=== PATIENT | female | born 1970 | race Caucasian/White ===

== ENCOUNTER 2017-03-09 05:57 | Day surgery (SDC) | payer BC ==
--- NOTE | 2017-03-07 16:10 | HP ---
CC: Dr. Chapman * DATE OF ADMISSION: 03/09/2017. This patient is scheduled for Same Day Surgery admission by Dr. Rios. DATE OF PREOPERATIVE HISTORY AND PHYSICAL EXAMINATION: 03/07/2017. ATTENDING SURGEON: Dr. Robert Rios * (dictated by Keyla Plascencai NP). CHIEF COMPLAINT: Left neck mass. HISTORY OF PRESENT ILLNESS: The patient is a 46-year-old female recently evaluated by Dr. Rios for a left neck soft tissue mass consistent with a lipoma. The patient reports that she has had it for some time, but has noticed that it has enlarged. She has been doing physical therapy for a cervical ailment and finds that it is more noticeable. She denies any pain at the site. Dr. Rios examined the patient and there is a mobile 3 x 3 cm lesion superior to the left clavicle. It is nontender with no overlying skin changes. There were no additional palpable lesions in the neck. Dr. Rios reviewed an ultrasound of the left neck that was done through the [facility] system and report revealed a nodular density in the left clavicular area consistent with lipoma. Dr. Rios has recommended excision of the left neck mass as a same day surgery procedure as [facility]. He described the nature of the surgical procedure, the rationale for the procedure, the relevant risks and benefits, and today I reviewed the expected postoperative care and recovery. The patient has had a chance to ask questions and stated that she understands the information and is satisfied with the answers given to her questions. She will sign surgical consent on the day of surgery. PAST MEDICAL HISTORY: Significant for smoking, asthma and allergies. PAST SURGICAL HISTORY: Laparoscopic hysterectomy 2013. MEDICATIONS: 1. Fexofenadine 180 mg one tablet p.o. daily at 3:00 p.m. 2. ProAir inhaler two puffs every 4 hours prn. 3. Melatonin ER 5 mg daily at bedtime prn. ALLERGIES: No known drug allergies. FAMILY HISTORY: No known anesthesia complications. No known bleeding tendencies or clotting disorders. SOCIAL HISTORY: She is . 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 She smokes a pack of cigarettes per day since age 15 and currently does not have a plan to quit. She drinks alcohol socially. She denies the use of the substances. Her boyfriend will be with her on the day of surgery. REVIEW OF SYSTEMS: Constitutional: No fevers, chills, excessive fatigue or weight loss. Endocrine: No known diabetes. She reports previous thyroid nodules and has had ultrasound follow-up. Hematologic: No easy bruising or bleeding. No previous blood transfusions. Respiratory: She is a smoker. She has a morning cough. She denies any shortness of breath. She has a history of asthma and allergies. No recent upper respiratory infections. Cardiovascular: No anginal chest pain or palpitations. Gastrointestinal: No nausea, vomiting , diarrhea or constipation. No change in bowel habits. No heartburn. Genitourinary: No dysuria. Musculoskeletal: No complaints of back or joint pain. Neurologic: No headache, blurred vision, no areas of focal weakness. General: No previous anesthesia complications. No history of deep vein thrombosis or pulmonary embolism. PHYSICAL EXAMINATION GENERAL: The patient is a 46-year-old female, well-developed, well-nourished, mildly overweight, in no acute distress. SKIN: Warm, dry, intact. VITAL SIGNS: Height 67 inches, weight 170 pounds, body mass index 26.6. Blood pressure 140/90, pulse 72 and regular, respiratory rate 16, temperature 98.2 tympanic. HEENT: Benign. NECK: Supple. No cervical lymphadenopathy. Palpation reveals a soft and nontender mobile mass superior to the left clavicle that measures approximately 3 cm x 3 cm. There are no overlying skin changes. LUNGS: Breath sounds bilaterally clear and equal. HEART: Regular rate and rhythm. No murmurs or rubs appreciated. BACK: No CVA tenderness. ABDOMEN: Active bowel sounds, soft, nondistended, nontender throughout. No obvious masses or organomegaly. EXTREMITIES: Warm without edema or skin ulceration. PELVIC: Exam deferred. RECTAL: Exam deferred. NEUROLOGIC: Alert and oriented times three. Steady gait. IMPRESSION: Left neck soft tissue mass. PLAN: Same Day Surgery admission to Dr. Rios's service on Tuesday, 2017, for excision of left neck soft tissue mass described as consistent with lipoma. CARLOS PLASCENCIA, RACIEL [id number]/[facility] #: [id number] [facility] SOUTHAMPTON HOSPITALSuyapa
[~2017-03-09 05:57] MED LIST: Buffered Lidocaine 0.9% SYRIN* 5 ML/SYR SYRINGE INTRADERM ONE
[2017-03-09] MEDS ORDERED: Dexamethasone IV* 4 MG/ML 1 ML (4 MG) IV SLOW PU ONE (06:00)
[2017-03-09] MEDS ORDERED: Famotidine IV* 10 MG/ML 2 ML (20 mg) IV ONE (06:00)
[2017-03-09] MEDS ORDERED: ceFAZolin 2 GM PREMIX (*) 2 GM/50 ML BAG IVPB ONE (06:46)
[2017-03-09] MEDS ORDERED: Dexamethasone IV* 4 MG/ML 1 ML (4 MG) ONE (06:46)
[2017-03-09] MEDS ORDERED: Famotidine IV* 10 MG/ML 2 ML (20 mg) ONE (06:46)
[2017-03-09] MEDS ORDERED: Bupivacaine 0.5% SDV PF* 10-30ML VIAL ONE (07:08)
[2017-03-09] MEDS ORDERED: Lidocaine 1% MPF wEPI 200,000* 30 ML SDV ONE (07:08)
[2017-03-09] MEDS ORDERED: fentaNYL* 50 MCG/ML 2 ML VIAL (100 MCG VIAL) ONE ×2 (07:23→08:32)
[2017-03-09] MEDS ORDERED: Midazolam* 1 MG/ML 2 ML VIAL (2 MG) ONE (07:23)
[2017-03-09] MEDS ORDERED: Naloxone* 0.4 MG/ML 1 ML VIAL IV PRN (07:26)
[2017-03-09] MEDS ORDERED: HYDROcodone/ACETAMIN 5-325 MG* 1 TAB PO PRN (07:26)
[2017-03-09] MEDS ORDERED: PROCHLORPERAZINE INJ 5 MG/ML 2 ML VIAL IV PRN (07:26)
[2017-03-09] MEDS ORDERED: fentaNYL* 50 MCG/ML 2 ML VIAL (100 MCG VIAL) IV PRN (07:26)
[2017-03-09] MEDS ORDERED: Ketorolac INJ* 30 MG/ML 1 ML VIAL IV PRN (07:26)
[2017-03-09] MEDS ORDERED: oxyCODONE/Acetamin 5/325 MG* TAB PO PRN (07:26)
[2017-03-09] MEDS ORDERED: Propofol* 10 MG/ML 20 ML BTL IV PUSH ONE (07:53)
[2017-03-09] MEDS ORDERED: Lidocaine 2% PF * 5 ML VIAL ONE (07:53)
[2017-03-09] MEDS ORDERED: Bupivacaine 0.25% SDV* 30 ML ONE (08:10)
[2017-03-09] MEDS ORDERED: Ondansetron INJ* 2 MG/ML VIAL ONE (08:18)
[2017-03-09 09:45] VITALS: BP 135/82
--- NOTE | 2017-03-19 04:15 | OP ---
CC: [facility]; Dr. Chapman OPERATIVE REPORT: DATE OF OPERATION: 03/09/17 DATE OF : 68 SURGEON: Robert Rios MD NURSES AIDE: EMMA Scott ANESTHESIOLOGIST: Dr. Sparks. ANESTHESIA: General anesthesia with LMA. PRE-OP DIAGNOSIS: Soft tissue lesion in the left neck. POST-OP DIAGNOSIS: Soft tissue lesion in the left neck. OPERATIVE PROCEDURE: Excision of left neck lipoma. ESTIMATED BLOOD LOSS: Minimal. SPECIMEN: Neck mass consistent with lipoma. IV FLUIDS: 1000 cc. DRAINS: None. DESCRIPTION OF PROCEDURE: The patient was identified in the preoperative area. The lesion again asse ssed. She was marked, consent signed, brought to the operating room. General anesthesia was deliver ed. The right neck and upper chest were prepped and draped in a standard surgical fashion. A time-o ut was performed. A curvilinear incision was made overlying the site at the mid lateral neck closer to the posterior tr iangle. This was deepened down through the platysma and flaps were made both posterior and anteriorl y. Dissection carried out to get down to the palpable lesion, which appeared just as fatty tissue wi thout any discrete capsule, this was removed in 3 parts, passed off as specimen. We irrigated the wo und and reapproximated the platysma with 2-0 Vicryl sutures and the skin level with 3-0 Vicryl suture s subcuticularly and a 4-0 Monocryl subcutaneous suture in a running fashion. Sterile dressing was a pplied. The patient tolerated the procedure well. [id number]/[facility] #: [id number]
== END 2017-03-09 10:14 | disposition home or self-care (01) ==
LOC: OR 05:57
PROVIDERS: ATTEND Surgery
DX: D17.9 Benign lipomatous neoplasm, unspecified (principal); F17.210 Nicotine dependence, cigarettes, uncomplicated; J45.909 Unspecified asthma, uncomplicated
CPT/HCPCS: 88304; J0690; J1100; J2001; J2250; J2405; J2704; J3010

== ENCOUNTER 2018-01-21 14:16 | Emergency (ER) | payer BC ==
[2018-01-21 14:27] VITALS: BP 151/79
--- NOTE | 2018-01-21 14:49 | ED ---
HPI Cardiac - HPI Summary HPI Summary: Patient presents with upper respiratory symptoms and cough 4 days. She reports she always has some level of nasal congestion however this seems to be worse as of late. Her cough is dry however is causing her throat and chest to burn. Admits she had chills last night - no quinten fever. Also has a headache. She took ibuprofen and [id number] cold and flu medicine which helped the symptoms. She also has asthma and uses albuterol daily. Since sick, she's been using it 3 times a day. Reports this does provide some relief. Cough repeatedly last night to the point of gagging and vomiting but otherwise has had no nausea, vomiting or diarrhea, and no joint pain, skin rash, neck stiffness, difficulty breathing or chest tightness. She received her influenza vaccine about a month ago. Sick contacts include her boyfriend. She smokes about a pack a day however this is been less than sick. She also admits to having a cat to which she is allergic. Has never had a nebulizer tx but has had inhaled steroids when she was first diagnosed w/ asthma. - History of Current Complaint Chief Complaint: UCRespiratory Stated Complaint: COUGH Time Seen by Provider: 01/21/18 14:23 Hx Obtained From: Patient Pain Intensity: 4 - Allergy/Home Medications Allergies/Adverse Reactions: Allergies Allergy/AdvReac Type Severity Reaction Status Date / Time Dogs and Cats Allergy Sneezing Uncoded 01/21/18 14:27 Seasonal Allergies Allergy Eyes Uncoded 01/21/18 14:27 Itchy/Swollen/Red/Watery Home Medications: Home Medications Citalopram TAB* [CeleXA TAB*] 20 mg PO DAILY 01/21/18 [History Confirmed ] Fexofenadine HCl [Allergy Relief] 60 mg PO DAILY 01/21/18 [History Confirmed ] PMH/Surg Hx/FS Hx/Imm Hx Previously Healthy: Yes Endocrine/Hematology History: Denies: Hx Diabetes, Hx Thyroid Disease, Hx Anemia Cardiovascular History: Denies: Hx Hypertension, Other Cardiovascular Problems/Disorders Respiratory History: Reports: Hx Asthma, Other Respiratory Problems/Disorders Denies: Hx Chronic Bronchitis, Hx Chronic Obstructive Pulmonary Disease (COPD ), Hx Pulmonary Edema, Hx Pulmonary Embolism GI History: Denies: Hx Gastroesophageal Reflux Disease, Hx Jaundice, Hx Ulcer, Other GI Disorders History: Denies: Other Problems/Disorders Musculoskeletal History: Reports: Other Musculoskeletal History - reversal of cervical lordosis, finished physical therapy Sensory History: Reports: Hx Contacts or Glasses - reading glasses Denies: Hx Hearing Aid Opthamlomology History: Reports: Hx Contacts or Glasses - reading glasses Neurological History: Denies: Other Neuro Impairments/Disorders - Surgical History Surgery Procedure, Year, and Place: Hysterectomy Hx Anesthesia Reactions: No - Immunization History Immunizations Up to Date: Yes Infectious Disease History: No Infectious Disease History: Denies: Hx Hepatitis, Hx Human Immunodeficiency Virus (HIV), Traveled Outside the [place] in Last 30 Days - Family History Known Family History: Positive: None - No family hx of cardiac, renal disease. - Social History Lives: With Family Alcohol Use: Weekly Alcohol Amount: 3-4 glasses of wine a night Hx Substance Use: No Substance Use Type: Reports: None Hx Tobacco Use: Yes Smoking Status (MU): Current Every Day Smoker Type: Cigarettes Amount Used/How Often: 1 ppd Have You Smoked in the Last Year: Yes Review of Systems Positive: Chills Eyes: Negative Negative: Drainage, Erythema Positive: Sore Throat, Ear Ache - congestion, Nasal Discharge - congestion Cardiovascular: Negative Positive: Cough Gastrointestinal: Negative Positive: no symptoms reported Musculoskeletal: Negative Skin: Negative Positive: Headache. Negative: Weakness, Paresthesia, Numbness, Syncope, Slurred Speech Psychological: Normal All Other Systems Reviewed And Are Negative: Yes Physical Exam Triage Information Reviewed: Yes Vital Signs On Initial Exam: Initial Vitals Temp Pulse Resp BP Pulse Ox 99.0 F 116 16 151/79 95 01/21/18 14:22 01/21/18 14:22 01/21/18 14:22 01/21/18 14:22 01/21/18 14:22 Vital Signs Reviewed: Yes Appearance: Positive: No Pain Distress, Well-Nourished, Ill-Appearing - mildly fatigued but alert, good energy Skin: Positive: Warm, Skin Color Reflects Adequate Perfusion, Dry - no rash Head/Face: Positive: Normal Head/Face Inspection Eyes: Positive: Normal, EOMI, Conjunctiva Clear. Negative: Conjunctiva Inflammed, Discharge ENT: Positive: Hearing grossly normal, Pharyngeal erythema - cobblestoning, Nasal congestion - Rt > Lt, TMs normal, Tonsillar exudate - Rt (scant), Uvula midline. Negative: Nasal drainage, Tonsillar swelling, Trismus, Muffled voice, Hoarse voice, Sinus tenderness Neck: Positive: Supple, No Lymphadenopathy, Tenderness @ Respiratory/Lung Sounds: Positive: Clear to Auscultation, Breath Sounds Present. Negative: Decreased Breath Sounds, Rales, Rhonchi, Stridor, Tracheal Deviation, Wheezes, Unable to speak in full sentences, Fatigue Cardiovascular: Positive: Normal, RRR, S1, S2. Negative: Murmur, Rub, Leg Edema Left, Leg Edema Right Abdomen Description: Positive: Nontender, No Organomegaly, Soft Bowel Sounds: Positive: Present Musculoskeletal: Positive: Normal, Strength/ROM Intact Neurological: Positive: Normal, Sensory/Motor Intact, Alert, Oriented to Person Place, Time, CN Intact II-III Psychiatric: Positive: Normal Diagnostics - Vital Signs Vital Signs Temp Pulse Resp BP Pulse Ox 01/21/18 14:22 99.0 F 116 16 151/79 95 - Laboratory Lab Statement: Any lab studies that have been ordered have been reviewed, and results considered in the medical decision making process. Re-Evaluation - Re-Evaluation First Eval Change: Improved - breathing easier s/p duoneb Disposition - Course Course Of Treatment: CXR: Rt upper lobe opacity along lower border - new from previous CXR. Radiology agrees consolidation here should be considered. Correlates w/ pt's sx. Will rx levaquin as she has h/o smoking and asthma. Increase albuterol q 4-6 hrs. Danger s/sx reviewed. Pt agrees w/ plan. NOTE: neg flu - Diagnoses Provider Diagnoses: Pneumonia of right lung due to infectious organism Discharge - Sign-Out/Discharge Documenting (check all that apply): Patient Departure All imaging exams completed and their final reports reviewed: Yes - Discharge Plan Condition: Stable Disposition: HOME Prescriptions: Levofloxacin TAB* [Levaquin TAB*] 750 mg PO DAILY #7 tab Patient Education Materials: Bacterial Pneumonia (ED) Forms: *Work Release Referrals: Sherrill Chapman MD [Primary Care Provider] - Additional Instructions: You may use your albuterol inhaler every 4-6 hours as needed for cough, wheezing , chest tightness. Compete antibiotics as directed. Follow-up with PCP this week - call Tuesday to schedule appointment. *If worse, go to ED - ie. difficulty breathing, shortness of breath, bloody cough, intractable fever despite acetaminophen alternating with ibuprofen, etc Try any or all of the following to support your healing process: Nasal wash (netti pot or saline spray) & salt water throat gargles 2 x day to reduce nasal congestion, post nasal drip which can trigger cough, sore throat, ear congestion Drink you body weight in ounces of water every day Sleep 8+ hours per night Avoid Dairy and sugar Hot herbal/decaf tea with lemon & honey Chicken broth (preferably organic, free range chicken) Humidifier in house, but especially near bed at night Keep home temperature at 68F or less to reduce dryness Use cough drops/throat lozenges Try a facial steam with or without eucalyptus essential oil or Mj's Vapor rub for congestion - if scent exacerbates cough, stop using Avoid smoke, candles, perfumes, colognes, scented soaps/detergents , air fresheners and cleaning chemicals as these can cause airway irritation and trigger coughing Start Vitamin D3 5000iu and Vitamin C 1000mg every day x winter months Start probiotics in between antibiotics (ie. Yogurt and/or capsules of L. acidophilus, L. bifidus, L. casei, etc) - Billing Disposition and Condition Condition: STABLE Disposition: Home
[2018-01-21] MEDS ORDERED: Albuterol/Ipratropium NEB.SOL* Albuterol 2.5 MG/Ipratropium 0.5 MG 3 ML INH ONE (14:54)
== END 2018-01-21 15:59 | disposition home or self-care (01) ==
LOC: UCEAST 14:16
DX: J18.9 Pneumonia, unspecified organism (principal); F17.210 Nicotine dependence, cigarettes, uncomplicated
CPT/HCPCS: 71046; 99212; A9270-GY; G0463

== ENCOUNTER 2019-03-15 16:14 | Emergency (ER) | payer SELFPAY ==
--- NOTE | 2019-03-15 16:51 | ED ---
Adult Trauma - HPI Summary HPI Summary: Patient complains of abrasions to face and right elbow pain status post mechanical fall while being chased by a dog. Denies LOC, N/V, unilateral deficit, altered mental status, amnesia. Denies any other pain, injury or symptoms. Medical history is asthma. - History of Current Complaint Chief Complaint: EDExtremityUpper Stated Complaint: FALL-RIGHT ELBOW INJURY PER EMS Time Seen by Provider: 03/15/19 16:35 Hx Obtained From: Patient Mechanism of Injury: Fall Ambulatory at the Scene: Yes Loss of Consciousness: no loss of consciousness Onset/Duration: Started Hours Ago Onset of Pain: Immediate Onset Severity: Severe Current Severity: Severe Pain Intensity: 9 Pain Scale Used: 0-10 Numeric Location: Head, Extremities Character: Aching, Stabbing Aggravating Factor(s): Movement Alleviating Factor(s): Nothing Associated Signs & Symptoms: Positive: Negative - Allergy/Home Medications Allergies/Adverse Reactions: Allergies Allergy/AdvReac Type Severity Reaction Status Date / Time Dogs and Cats Allergy Sneezing Uncoded 01/21/18 14:27 Seasonal Allergies Allergy Eyes Uncoded 01/21/18 14:27 Itchy/Swollen/Red/Watery PMH/Surg Hx/FS Hx/Imm Hx Endocrine/Hematology History: Denies: Hx Diabetes, Hx Thyroid Disease, Hx Anemia Cardiovascular History: Denies: Hx Hypertension, Other Cardiovascular Problems/Disorders Respiratory History: Reports: Hx Asthma, Other Respiratory Problems/Disorders Denies: Hx Chronic Bronchitis, Hx Chronic Obstructive Pulmonary Disease (COPD ), Hx Pulmonary Edema, Hx Pulmonary Embolism GI History: Denies: Hx Gastroesophageal Reflux Disease, Hx Jaundice, Hx Ulcer, Other GI Disorders History: Denies: Other Problems/Disorders Musculoskeletal History: Reports: Other Musculoskeletal History - reversal of cervical lordosis, finished physical therapy Sensory History: Reports: Hx Contacts or Glasses - reading glasses Denies: Hx Hearing Aid Opthamlomology History: Reports: Hx Contacts or Glasses - reading glasses EENT History: Denies: Hx Deafness Neurological History: Denies: Hx Dementia, Other Neuro Impairments/Disorders - Surgical History Surgery Procedure, Year, and Place: Hysterectomy Hx Anesthesia Reactions: No Infectious Disease History: No Infectious Disease History: Denies: Hx Hepatitis, Hx Human Immunodeficiency Virus (HIV), Traveled Outside the [place] in Last 30 Days - Family History Known Family History: Positive: None - No family hx of cardiac, renal disease. - Social History Alcohol Use: Daily Alcohol Amount: 3-4 glasses of wine a night Hx Substance Use: No Substance Use Type: Reports: None Hx Tobacco Use: Yes Smoking Status (MU): Light Every Day Tobacco Smoker Type: Cigarettes Amount Used/How Often: 1 ppd Have You Smoked in the Last Year: Yes Review of Systems Constitutional: Negative Eyes: Negative ENT: Negative Cardiovascular: Negative Respiratory: Negative Gastrointestinal: Negative Genitourinary: Negative Musculoskeletal: Other Positive: Other Neurological: Negative Psychological: Normal All Other Systems Reviewed And Are Negative: Yes Physical Exam - Summary Physical Exam Summary: Neuro exam normal. Minor abrasions on chin and nose. No other evidence of trauma to mouth, face or head. Full range of motion of jaw and neck. Patient moves right lateral lower extremities and left upper extremities freely without any indication of pain. No pain with palpation of neck, back, chest, abdomen. Patient will not move right upper extremity. Obvious deformity just proximal to right elbow. PMS intact distally. Wrist and thumb extension intact sensation intact on all fingers. Patient able to actively move all fingers. Hand warm, Pulses intact. Triage Information Reviewed: Yes Vital Signs On Initial Exam: Initial Vitals Temp Pulse Resp BP Pulse Ox 96.4 F 70 18 121/69 91 03/15/19 16:26 03/15/19 16:26 03/15/19 16:26 03/15/19 16:26 03/15/19 16:26 Vital Signs Reviewed: Yes Appearance: Positive: Well-Appearing Skin: Positive: Warm Head/Face: Positive: Normal Head/Face Inspection Eyes: Positive: Normal Dental: Negative: Dental Fracture @, Bleeding Neck: Positive: Supple Respiratory/Lung Sounds: Positive: Clear to Auscultation Cardiovascular: Positive: Normal Abdomen Description: Positive: Nontender Musculoskeletal: Positive: Normal Neurological: Positive: Normal Psychiatric: Positive: Normal AVPU Assessment: Alert - Antony Coma Scale Best Eye Response: 4 - Spontaneous Best Motor Response: 6 - Obeys Commands Best Verbal Response: 5 - Oriented Coma Scale Total: 15 Procedures - Sedation Patient Received Moderate/Deep Sedation with Procedure: No Diagnostics - Vital Signs Vital Signs Temp Pulse Resp BP Pulse Ox 03/15/19 16:26 96.4 F 70 18 121/69 91 - Laboratory Lab Statement: Any lab studies that have been ordered have been reviewed, and results considered in the medical decision making process. Adult Trauma Course/Dx - Course Course Of Treatment: Patient complains of abrasions to face and right elbow pain status post mechanical fall while being chased by a dog. Denies LOC, N/V, unilateral deficit, altered mental status, amnesia. Denies any other pain, injury or symptoms. Medical history is asthma. Vital signs within normal limits. X-ray positive for distal humerus fracture. Fracture reduced and splinted by orthopedics Dr. Pires. Follow-up appointment on Tuesday in clinic with Dr. Pires. Discharged with Rx for Percocet per Dr. Pires. - Diagnoses Provider Diagnoses: Fall, Humeral distal fracture Discharge ED - Sign-Out/Discharge Documenting (check all that apply): Patient Departure - Discharge Plan Condition: Stable Disposition: HOME Prescriptions: oxyCODONE/Acetamin 5/325 MG* [Percocet 5/325 TAB*] 1 tab PO Q4H PRN 4 Days #24 tab MDD 6 tabs PRN Reason: Pain Patient Education Materials: Arm Fracture in Adults (ED) Referrals: Sherrill Chapman MD [Primary Care Provider] - Brien Pizarro MD [Medical Doctor] - Additional Instructions: Take Percocet as directed if needed for pain. Call clinic of orthopedics Dr. Pires tomorrow to arrange appointment for follow-up on Tuesday. - Billing Disposition and Condition Condition: STABLE Disposition: Home
[2019-03-15] MEDS ORDERED: HYDROmorphone INJ* 0.5 MG/0.5 ML SYRINGE IV ONE ×2 (16:54→18:44)
--- NOTE | 2019-03-15 21:28 | CONS ---
CONSULTATION NOTE: DATE OF CONSULT: 03/15/19 - EMERGENCY DEPT REASON FOR CONSULTATION: Right humerus fracture. 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 The patient was at work. She was delivering the mail to someone's house. There was a dog who was outside. The dog lunged towards her. She ran away from the dog. She tripped and fell hard on her right upper extremity and then her face. The patient had significant pain, swelling, deformity in the right upper arm and went to the [facility] [place]. The patient denies any numbness, tingling, or weakness of the right hand. PAST MEDICAL HISTORY: Asthma, mild; seasonal allergies; depression or dysthymia. PAST SURGICAL HISTORY: Hysterectomy. MEDICATIONS: 1. Celexa. 2. Albuterol as needed. 3. Allergy pill, unknown type, assumed to be antihistamine. ALLERGIES: No known drug allergies. FAMILY HISTORY: No family history of problems with anesthesia or blood clots. SOCIAL HISTORY: The patient is right hand dominant. She lives alone, but she has a boyfriend that she spends a lot of time with. REVIEW OF SYSTEMS: Full 14-point review of systems was negative with the exception of some pain and swelling in the right upper arm and elbow along with the face. PHYSICAL EXAM: No acute distress, alert and oriented, appropriate mood and affect, appropriate dress and hygiene. The patient is sitting in a stretcher in the emergency department. Right upper extremity exam reveals pain, swelling, and deformity about the right upper arm. No open skin. Neurovascularly intact distally. Radial artery pulse brisk. Sensation fully intact in all peripheral nerve distributions. Motor intact with special attention paid to radial nerve distribution motor, which was intact. Hand warm and well perfused. Sensation intact. DIAGNOSTIC STUDIES/LAB DATA: Imaging: X-rays of the right upper arm as well as elbow were obtained in the emergency department and reviewed by me. These showed a comminuted displaced fracture of the distal humerus shaft. There is significant varus angulation along with flexion at the fracture site and shortening. ASSESSMENT: Right humerus shaft fracture, displaced, comminuted. PLAN: 1. I discussed with the patient and her boyfriend the humerus anatomy and the patient's fracture. 2. I discussed nonoperative and operative treatment for these injuries. 3. We next placed a coaptation splint followed by a long-arm posterior splint. We used a 1-step material for this. After the splints had been placed but before they set, I tried to perform a reduction maneuver, closed, with longitudinal traction, valgus, and extension at the fracture site. This hurt and there appeared to be some movement. I placed a collar, cuff, swathe with a band of material around her neck reaching to her wrist to allow gravity to reduce the right humeral shaft. 4. I performed neurovascular exam after the closed reduction maneuver and splinting. The patient was again neurovascularly intact. 5. X-ray: Radiographs were obtained after the reduction maneuver. Only 1 image has been obtained so far, but it shows significant improvement of reduction, specifically much less flexion at the fracture site. 6. The patient will be discharged home with Percocet or another narcotic as needed for pain control. 7. The patient will follow up in clinic with me on the afternoon of Tuesday, . We will get x-rays in clinic that day. We will discuss nonoperative and operative management and we will decide on the course of treatment. If the patient decides on surgery or if surgery is required based on the amount of displacement at that time, we will hopefully find a spot for the patient in the operating room on that week of 03/19/19 for an open reduction internal fixation with a posterior locking plate. [id number]/[facility] #: [id number] MTDD
[2019-03-16] MEDS ORDERED: Ondansetron INJ* 2 MG/ML VIAL IV ONE (00:10)
[2019-03-16 01:46] VITALS: BP 132/79
== END 2019-03-16 01:50 | disposition home or self-care (01) ==
LOC: ED 16:14
DX: S42.401A Unspecified fracture of lower end of right humerus, initial encounter for closed fracture (principal); J45.909 Unspecified asthma, uncomplicated; W19.XXXA Unspecified fall, initial encounter; Y92.9 Unspecified place or not applicable; F17.210 Nicotine dependence, cigarettes, uncomplicated
CPT/HCPCS: 96374; 96375; 96376; 99285; J1170; J2405

== ENCOUNTER → 2019-03-23 07:18 | Day surgery (SDC) | payer OTHER ==
[~2019-03-23 07:18] MED LIST changes: +Acetaminophen IV 1GM/100ML * 100 ML ONE; -Buffered Lidocaine 0.9% SYRIN* 5 ML/SYR SYRINGE INTRADERM ONE; +Buffered Lidocaine 1% SYRIN* 1 ML/SYRINGE INTRADERM ONE; +Bupivacaine 0.25% EPI 200,000* 30 ML SDV ONE; +Dexamethasone IV* 4 MG/ML 1 ML (4 MG) ONE; +Glycopyrrolate IV* 0.2 MG/ML 1 ML VIAL ONE; +Lactated Ringers 1000 ML Bag* 1,000 ML IV SCH; +Lidocaine 2% PF * 5 ML VIAL ONE; +Metoclopramide IV* 5 MG/ML 2 ML VIAL ONE; +Midazolam* 1 MG/ML 2 ML VIAL (2 MG) ONE; +Ondansetron INJ* 2 MG/ML VIAL ONE; +Propofol* 10 MG/ML 20 ML BTL ONE; +Rocuronium* 10 MG/ML VIAL ONE; +Succinylcholine* 20 MG/ML 10 ML VIAL ONE; +Sugammadex * 200 MG/2 ML VIAL IV PUSH ONE; +fentaNYL* 50 MCG/ML 2 ML VIAL (100 MCG VIAL) ONE; +oxyCODONE/Acetamin 5/325 MG* TAB ONE
[2019-03-23 17:42] VITALS: BP 123/63
--- NOTE | 2019-03-25 00:27 | OP ---
OPERATIVE REPORT: DATE OF OPERATION: 03/23/19 DATE OF : 68 SURGEON: Brien Pizarro MD. TOOTH CUTTER PINION: EMMA Marks A physician staff assistant was required for the length of the procedure, for assistance with patient positioning, retraction, instrumentation and closure. ANESTHESIOLOGIST: Dr. Dominic Israel ANESTHESIA: General anesthesia, local anesthesia using 30 cc of Marcaine 0.25% with epinephrine. PRE-OP DIAGNOSIS: Right distal humerus shaft fracture, displaced, comminuted. POST-OP DIAGNOSIS: Right distal humerus shaft fracture, displaced, comminuted. OPERATIVE PROCEDURE: Open reduction and internal fixation, right distal humerus shaft fracture. ANTIBIOTICS: Ancef 2 g IV. IV FLUIDS: See Anesthesia note. PATIENT POSITIONING: Prone. QVKG-FQ-YLLS TIME: 180 minutes. TOURNIQUET TIME: 22 minutes at 250 mmHg right upper arm. RADIATION EXPOSURE: C-arm utilized. Exposure time 25.5 seconds. SPECIMEN: None. IMPLANTS: Synthes 3.5 mm LCP extraarticular distal humerus plate. 10 Combi hole plate that also has 5 distal locking holes. Placed posterior more proximally and posterolaterally more distally. Plate was filled with 3.5 mm non -locking and locking screws. One 3.5 mm cortical screw was placed using lag technique from posteromedial to anterior towards the distal end of the main long oblique fracture line. Two Fiberwire #2 suture were placed in cerclage fashion around the humerus at the level of a small piece of comminuted bone to hold it in place against the two larger fragments of bone. APPROACH: Paratricipal approach to the humerus shaft. COMPLICATIONS: None. ESTIMATED BLOOD LOSS: Less than 200 cc. INDICATIONS FOR PROCEDURE: The patient is a 48-year-old woman who injured herself at work on 03/15/19. 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 I saw the patient in the hospital as a consult to the emergency room. I noted the significant displacement of the fracture site. I attempted to improve the reduction with some manipulation in the emergency room and then I placed a coaptation splint followed by a long-arm posterior splint. I placed a cuff and collar for the arm to hand from the neck allowing gravity to attempt to improve the reduction with some time. I then saw the patient for followup in clinic on 03/20/19. Over the preceding 5 days, the reduction had not significantly improved. There was still much deformity at the fracture site including at least 21 degrees of varus, at least 16 degrees of posterior angulation, and rotational deformity. I discussed treatment options with the patient and her family, including nonoperative and operative. Discussed some classic indications for humeral shaft surgery. I discussed risks and potential complications of surgery including nerve injury, specifically the radial nerve, that is known to traverse the posterior aspect of the arm directly adjacent to the distal humerus shaft where this fracture is located. I also discussed ulnar nerve being nearby. Given the patient's history of smoking, 30 pack years, I discussed with her risk of nonunion and failure of hardware. I also discussed possibility of elbow stiffness. I discussed prone position with an armboard. The patient opted to move forward with surgery. DESCRIPTION OF PROCEDURE: In preoperative holding, the patient signed written consent. Operative extremity was marked in preoperative holding. I discussed that the patient's bone and soft tissues will heal better if she cuts down on or eliminates her cigarette smoking. The patient was taken back to the operating room. On the stretcher, the patient was sedated and intubated. The patient was converted to a prone position on the operating room table. Gel pads were used, 2 of them running longitudinally under the patient's chest. Both of the patient's axilla were noted to be free and comfortable, not under any significant strain. The entire body's undersurface was well padded including the knees. I had brought in an armboard and placed that under the patient's shoulder area that would be utilized to hold the arm as it was radiolucent. This would allow the upper arm to be very stable and the elbow to flex approximately 90 degrees. The arm would not need to be moved or jostled for radiographs. This was all designed for safety while dissecting around nerves. The C-arm was positioned, so would come in parallel to the body, from the side of the table with the head of the patient. I brought the C-arm in and confirmed that appropriate x-rays, AP and lateral could be obtained. I was happy with the patient positioning, and the setup to comfortably and safely obtain radiographs. The right upper extremity was prepped and draped. Formal surgical time-out performed. A sterile tourniquet was applied about the right upper arm, although it was unsure if we will be able to leave it in place because I anticipated a very lengthy surgical incision. I made a skin incision, longitudinal, direct posterior. I curved this just lateral to the point of the olecranon and I extended the incision to just distal to the olecranon tip. I started proximally somewhere between 40% and 50 % down the upper arm from proximal to distal anticipating needing to extend it further proximal later in the case. I dissected down through subcutaneous tissue. I evacuated some blood present given superficial to the muscle and fascial layer. I incised some fascia longitudinally, direct posteriorly. It did not seem like that there was a discrete thick fascial layer that could be repairable. I exposed nicely the triceps muscle. I dissected along the medial aspect of the triceps muscle. I encountered the ulnar nerve. I released it distal to the proximal entrance point of the cubital tunnel. I started releasing it proximally. I felt a bone deep to the triceps muscle. I debrided bone with a sponge, removing some blood and muscle exposing nicely the bone. I encountered the fracture site. I next moved to little lateral. I dissected along the lateral aspect of the triceps muscle. Hugging the lateral aspect very directly to avoid injury to the radial nerve, I dissected down to bone, likewise could feel bone from this side, as per a standard para-tricipital triceps sparing approach. I palpated and visualized the most inferior aspect of the fracture and it was clear what would have to dissect much more proximally. This was very early in the procedure. Dissection to bone was very quick, although the remainder of the dissection was done very slowly and carefully given the close proximity of nerves. Tourniquet was removed. Skin incision was extended proximally along with fascial incision and exposure of the triceps. I dissected around the ulnar nerve much more proximally as well as along the medial aspect of the triceps muscle. I never needed to place the ulnar nerve in a vessel loop. It was sufficiently out of the way that I was not concerned with an inadvertent injury. I dissected up more proximally along the lateral aspect of the triceps. I noted that the radial nerve was directly adjacent to fracture as was expected. It was very closed essentially immediately adjacent to the fracture site. In fact, the small piece of comminution was directly adherent to soft tissue encasing the radial nerve. This was slowly and carefully removed from that tissue. That small fragment of bone went to the back table and kept moist. I slowly and carefully dissected along the medial and lateral aspect of the radial nerve. It was not a clot within the fracture site, although its course was directly adjacent to the fracture site, very dangerous indeed. I continued my exposure proximally to get excellent exposure of the radial nerve , as it traversed from medial proximal to lateral distal. I dissected down until the radial nerve extruded through the lateral intramuscular septum. Comfortable with my ulnar nerve being out of the way and my radial nerve now loose and also with a vessel loop around it. I proceeded to debride the fracture site. I used rongeurs, curettes, irrigation to debride clot out the fracture. I used my fingers and clamps to reduce the fracture anatomically. Locked in nicely. I added the additional small piece of bone that had been on the back table to the fracture site. I placed 1 lag screw towards the distal end of the fracture using lag technique. This was placed along the medial aspect of the bone, as I knew it would not interfere with the future placement. This helped the fracture nicely in place more distally. At the location of that small bone fragment, I placed 2 cerclage stitches using FiberWire #2 suture. These nicely held in place that small piece of comminution. When the final bone clamp was removed, this single lag screw held nicely the reduction. C-arm was used to obtain AP and lateral radiographs, which showed anatomic or near anatomic position. I could view clearly the radial and ulnar nerves along the length of the incision and the length of the fracture and so I knew there was certainly no interposed nerve injury was present. I should state that I had come into this case with a wide variety of plate options, 3.5 mm and 4.5mm, available to me. I thought that this was important as this fracture was interesting because it was a particularly long oblique fracture in shape. I knew therefore that it would require a significant length of plate to get 3 or better 4 screws proximal to the proximal most aspect of the fracture and distal to the distal most aspect of the fracture. I ended up choosing the Synthes distal humerus locking plate, 3.5 mm because it could be extended more distally than an uncontoured straight plate. I was able to fit it to bone nicely. I picked a height based on appearance on radiographs and contour to bone. I did not manipulate the shape of the plate. I had to slide the plate deep to the radial nerve. In case revision surgery is ever required, I noted that the radial nerve crossed the plate at the level of the Combi holes number (from distal to proximal) 6, 7, 8, and 9. Plate was next filled with screws. I started with nonlocking screws 1 proximal and 1 distal to the fracture. Radiographs showed excellent plate position and excellent reduction. I placed some additional nonlocking screws at the level of fracture, so they would both go through the plate and lag the 2 fracture fragments, the major fracture fragments together. I placed a number of locking screws then proximally and distally. Final radiographs were obtained. At least 4 screws proximal to the proximal most extent of the fracture and distal to the distal most extent of the fracture. Radial nerve was noted to be directly adjacent to that plate in holes 6 through 9, as measured from distal to proximal. It was clearly not embedded in the fracture site and clearly was on top and not beneath the plate. Irrigation. I closed some fascial tissue over the distal most aspect of the plate above the posterior elbow, so as to make that plate less prominent and so the patient would not be sensitive there. More proximally, there was not a nice fascial layer to close, but there was a strong layer of deeper fat, perhaps with a little bit of fascia attached to it that I placed multiple figure -of-eight stitches using Vicryl 0 suture. I then closed the subcutaneous layer along the length of the incision with buried simple stitches using Vicryl 2-0 suture. Closure of the kin with jose antonio. No drain was placed. The patient had oozed some blood throughout the length of the procedure, but no heavy bleeding in any specific juncture of the case was encountered. Some local anesthesia was injected in the subcutaneous tissue along the length of the surgical incision, specifically 30 cc of Marcaine 0.25% with epinephrine. Xeroform, 4x4s, ABDs, sterile Webril. The patient was converted back into a supine position on stretcher. With the patient now supine, we placed a long arm posterior plaster splint followed by a sugar tong about the medial and lateral upper arm. We overlapped this with an Balbir bandage. The patient was awakened, extubated, and transferred to the PACU. DISPOSITION: The patient was discharged home when medically stable. We discharged her on a 7-day course of Keflex antibiotics as prophylaxis given the long length of the incision and the significant amount of hardware placed. We provided Percocet as needed for pain control. The patient will keep the splint in place. A sling was provided, to be used as needed. The patient will follow up in clinic in approximately 1 week. I spent some time speaking to the patient in preoperative holding about the improvements of cutting down or eliminating her cigarette smoking. I will again reiterate the importance of this in her postoperative clinic visits as it will increase the likelihood of successful bony fusion at the fracture site. ADDENDUM: At the conclusion of the case, while the patient was on the stretcher , I felt for radial artery pulse and it was excellent, brisk. In the PACU, I performed a nerve exam. The patient was slightly sedated, but she did have weakness in thumb extension and wrist extension. If I place the wrist in an extended position, the patient was able to hold it there and gravity did not push it down. I told the patient and her family that we would monitor this. As this was an open and not a closed surgery and I could visualize radial nerve over the length of the excision site, I did not think reexploration at that time was warranted. Instead, I thought that the radial nerve dysfunction in the PACU was likely secondary to local anesthesia, or retraction intraoperatively, or injury about the fracture site by the bone with positioning in the emergency room or OR, or pain, or combination of the above. We will certainly monitor this closely postoperatively; I planned to call the patient on postoperative day 1 to inquire about this. We obtained radiographs in the PACU prior to the patient going home. [id number]/[facility] #: [id number] KATHI
== END | disposition home or self-care (01) ==
LOC: OR 07:18
PROVIDERS: ATTEND Orthopaedic Surgery
DX: S42.301A Unspecified fracture of shaft of humerus, right arm, initial encounter for closed fracture (principal); W01.0XXA Fall on same level from slipping, tripping and stumbling without subsequent striking against object, initial encounter; Y92.9 Unspecified place or not applicable; Y99.0 Civilian activity done for income or pay; F17.210 Nicotine dependence, cigarettes, uncomplicated; J45.909 Unspecified asthma, uncomplicated
CPT/HCPCS: 76000; A9270-GY; C1713; C1776; J0330; J1100; J2250; J2405; J2704; J2765; J3010